=== PATIENT | female | born 1995 | race Caucasian/White ===

== ENCOUNTER 2018-04-02 16:34 | Emergency (ER) | payer BC ==
--- NOTE | 2018-04-02 16:38 | ER Report ---
History and Physical Time Seen By MD: 16:37 (KAITLIN MANLEY DO) HPI/ROS CHIEF COMPLAINT: Chest heaviness, shortness of breath HISTORY OF PRESENT ILLNESS: Patient is a 23-year-old female here with complaints of chest heaviness, shortness of breath which woke the patient from sleep this morning. Patient was evaluated at an emergency department in [place] and found to have an elevated d-dimer. Labs are otherwise negative with normal kidney function. Patient was discharged and the patient got in contact with her PCP who recommended coming to the emergency department for evaluation of a d-dimer in the setting of persistent shortness of breath and chest tightness. Patient is maintaining oxygen saturations greater than 94% and is hemodynamically stable at time of evaluation. Patient denies history of smoking, she is a box truck owner operator and recently started on the truck 2 months ago. She does have a history of hypothyroidism on levothyroxine, history of gastric bypass, does have a neck supple non-for contraceptive. Denies prior history of PE DVT or lower extremity swelling. REVIEW OF SYSTEMS: Constitutional: No fever, no chills. Eyes: No discharge. ENT: No sore throat. Cardiovascular: + Midsternal chest discomfort and heaviness,no palpitations. Respiratory: No cough, + shortness of breath. Gastrointestinal: No abdominal pain, no vomiting. Genitourinary: No hematuria. Musculoskeletal: No back pain. Skin: No rashes. Neurological: No headache. (KAITLIN MANLEY DO) Allergies: Coded Allergies: No Known Drug Allergies (Unverified , 04/02/18) Home Meds Active Scripts Prednisone (PREDNISONE) 20 Mg Tablet, 40 MG PO QDAY, #6 TAB 0 Refills Prov:CHUCKIE RODRIGUEZ MD 04/02/18 Reported Medications Etonogestrel (NEXPLANON) 68 Mg Implant, 68 MG SQ DIRECTED, IMPLANT 04/02/18 Levothyroxine Sodium (LEVOTHYROXINE SODIUM) 50 Mcg Tablet, 50 MCG PO QDAY, TAB 04/02/18 Constitutional Vital Sign - Last 24 Hours 04/02/18 04/02/18 04/02/18 04/02/18 16:46 16:49 17:04 17:19 Temp 97.9 Pulse 87 89 96 79 Resp 14 B/P (MAP) 133/80 Pulse Ox 96 95 93 99 O2 Delivery Room Air 04/02/18 04/02/18 04/02/18 04/02/18 17:30 17:34 18:04 18:19 Pulse ??? 86 81 B/P (MAP) 133/87 (102) Pulse Ox 71 98 97 04/02/18 04/02/18 04/02/18 04/02/18 18:24 18:39 18:54 19:00 Pulse 79 85 81 B/P (MAP) ???/??? (1665) Pulse Ox 96 97 98 (CHUCKIE RODRIGUEZ MD) Physical Exam General Appearance: The patient is alert, has no immediate need for airway protection and no signs of toxicity. No acute distress Eyes: Pupils equal and round no pallor or injection. ENT, Mouth: Mucous membranes are moist. Respiratory: There are no retractions, lungs are clear to auscultation. Cardiovascular: Regular rate and rhythm. Gastrointestinal: Abdomen is soft and non tender, no masses, bowel sounds normal. Neurological: No focal neurological findings Skin: Warm and dry, no rashes. Musculoskeletal: Neck is supple non tender. Extremities are nontender, nonswollen and have full range of motion. DIFFERENTIAL DIAGNOSIS: After history and physical exam differential diagnosis was considered for shortness of breath including but not limited to pulmonary infectious process, COPD, asthma, pulmonary embolus and congestive heart failure. (KAITLIN MANLEY DO) Medical Decision Making Data Points Laboratory Hematology Test 04/02/18 16:59 Urine HCG, Qualitative Negative (NEGATIVE) Chemistry Test 04/02/18 16:59 Urine HCG, Qualitative Negative (NEGATIVE) Urinalysis Test 04/02/18 16:59 Urine HCG, Qualitative Negative (NEGATIVE) (CHUCKIE RODRIGUEZ MD) EKG/Imaging Imaging CT CTA CHEST W & W/O CON COMPARISONS: None. ADDITIONAL PERTINENT HISTORY: Shortness of breath TECHNIQUE: Multiple axial images are obtained from the lung apices through the upper abdomen during the IV administration of contrast material. 2-D and 3-D reformatted images were obtained off the axial source data. One of the following dose optimization techniques was utilized in the performance of this exam: Automated exposure control; adjustment of the mA and/or kV according to the patient's size; or use of an iterative reconstruction technique. Specific details can be referenced in the facility's radiology CT exam operational policy. CONTRAST: 75mL of Isovue-370 FINDINGS: Lung parenchyma: Negative. Pleural spaces: Negative. Heart, mediastinum and ladonna: Negative. Cardiopulmonary vasculature: Pulmonary arterial structures are well opacified with contrast material and demonstrate no evidence of underlying pulmonary emboli. Central airways: Negative Thyroid, supra- clavicular, axillary regions: Negative. Surrounding soft tissues: Negative. Upper abdominal structures: Patient status post previous gastric bypass procedure. Otherwise negative Osseous structures: Negative. IMPRESSION: Normal CTA of the chest. Specifically no evidence of underlying pulmonary emboli. Report Dictated By: Edwin Mayorga MD at 04/02/2018 6:12 PM (CHUCKIE RODRIGUEZ MD) ED Course/Re-evaluation ED Course Patient is a 23-year-old female here with complaints of chest discomfort, shortness breath in the setting of marcio and Nexplanon implantation 2 months ago. Patient reportedly had a positive d-dimer this morning at an outside hospital and the patient's PCP recommended that the patient proceed to an emergency department for further evaluation and possible imaging. Patient had persistent symptoms since this morning prompting CT PE. Patient's CBC, CMP were normal at outside hospital this morning and a beta-HCG was found be negative here today. Patient was signed out to Dr. Rodriguez pending CT PE findings. Plan to discharge of CT PE negative. Decision to Disposition Date: Apr 02, 2018 Decision to Disposition Time: 18:00 (KAITLIN MANLEY DO) ED Course I assumed care of this patient from Dr. Manley at shift change. CTA was negative for pulmonary embolism. Reviewed findings with the patient. Will treat for possible esophagitis and gastritis with anti-acid medicines Pepcid or Zantac. Will also start Prednisone for inflamation in chest wall or lungs. Decision to Disposition Date: Apr 02, 2018 Decision to Disposition Time: 18:52 (CHUCKIE RODRIGUEZ MD) Depart Departure Latest Vital Signs Vital Signs Date Time Temp Pulse Resp B/P (MAP) Pulse Ox O2 Delivery O2 Flow Rate FiO2 04/02/18 19:00 ???/??? (1665) 04/02/18 18:54 81 98 04/02/18 16:46 97.9 14 Room Air (CHUCKIE RODRIGUEZ MD) Impression: Primary Impression: Chest tightness Condition: Improved Disposition: HOME OR SELF-CARE New Scripts Prednisone (PREDNISONE) 20 Mg Tablet 40 MG PO QDAY, #6 TAB 0 Refills Prov: CHUCKIE RODRIGUEZ MD 04/02/18 Patient Instructions: Chest Pain (ED) Additional Instructions: Workup was negative for blood clots in the lungs. Pain could be due to inflammation in the lungs or chest, or due to inflammation in the esophagus/stomach area. Take Zantac or Pepcid twice a day for the next 1-2 weeks. Take Prednisone 20mg tablets, 2 tablets once a day for 3 days. Take this with food. KAITLIN MANLEY DO Apr 02, 2018 16:37 CHUCKIE RODRIGUEZ MD Apr 02, 2018 18:08
[2018-04-02] MEDS ORDERED: LEVO50TA86 PO (16:54)
[2018-04-02] MEDS ORDERED: ETON68IM SQ (16:55)
[2018-04-02] MEDS ORDERED: IOPAMIDOL 76% 150 ML INFUS BTL 150 ML ONE (17:07)
[2018-04-02] MEDS ORDERED: NS(*) 0.9% 50 ML BAG 50 ML ONE (17:07)
--- NOTE | 2018-04-02 18:20 | RADIOLOGY IMAGING REPORT ---
FACILITY: [facility] - [place] PATIENT NAME: Lisy Washington : 1995 MR: [id number] V: [id number] EXAM DATE: ORDERING PHYSICIAN: KAITLIN TREVINO TECHNOLOGIST: Location: [facility] - [place] Patient: Lisy Washington : 1995 Visit/Account:[id number] Date of Sevice: 04/02/2018 CT CTA CHEST W & W/O CON COMPARISONS: None. ADDITIONAL PERTINENT HISTORY: Shortness of breath TECHNIQUE: Multiple axial images are obtained from the lung apices through the upper abdomen during t he IV administration of contrast material. 2-D and 3-D reformatted images were obtained off the axial source data. One of the following dose optimization techniques was utilized in the performance of t his exam: Automated exposure control; adjustment of the mA and/or kV according to the patient's size; or use of an iterative reconstruction technique. Specific details can be referenced in the [facility]'s radiology CT exam operational policy. CONTRAST: 75mL of Isovue-370 FINDINGS: Lung parenchyma: Negative. Pleural spaces: Negative. Heart, mediastinum and ladonna: Negative. Cardiopulmonary vasculature: Pulmonary arterial structures are well opacified with contrast material and demonstrate no evidence of underlying pulmonary emboli. Central airways: Negative Thyroid, supra- clavicular, axillary regions: Negative. Surrounding soft tissues: Negative. Upper abdominal structures: Patient status post previous gastric bypass procedure. Otherwise negative Osseous structures: Negative. IMPRESSION: Normal CTA of the chest. Specifically no evidence of underlying pulmonary emboli. Report Dictated By: Edwin Mayorga MD at 04/02/2018 6:12 PM Report E-Signed By: Edwin Mayorga MD at 04/02/2018 6:16 PM WSN:[email or web address]
[2018-04-02] MEDS ORDERED: PRED20TA6 PO (18:54)
== END 2018-04-02 19:08 | disposition home or self-care (01) ==
LOC: ER 16:59
DX: R07.89 Other chest pain (principal)
CPT/HCPCS: 71275; 81025; 99284; J7050; Q9967